=== PATIENT | female | born 1965 | race Caucasian/White ===

== ENCOUNTER 2025-06-10 11:54 | Outpatient (AMB) | payer OTHER, SELFPAY ==
--- NOTE | 2025-06-10 12:10 | MHC.OFFVIS ---
Intake Visit Reasons: FU Allergies No Known Allergies Allergy (Verified 06/10/25 12:20) Medication List - Last Reconciled 06/10/25 by Brii Robin CNP amitriptyline 10 mg PO BEDTIME bupropion HCl SR (Wellbutrin SR) 300 mg PO BID ahmuwthrrn-thqbjyuyrwzms-ygko 50-300-40 mg 1 cap PO Q8H PRN estradiol (Minivelle) 1 patch transdermal 2XW fremanezumab-vfrm (Ajovy) 225 mg subcut .[id number] gabapentin 100 mg PO BEDTIME ondansetron HCl 4 mg PO DAILY progesterone micronized 100 mg PO BEDTIME propranolol ER 160 mg PO DAILY sertraline (Zoloft) 37.5 mg PO DAILY HPI Comments Details: Migraines are better with Ajovy. She still gets some pressure in neck area after injection, but does not last as long. Getting about 3 migraines/month with photophobia, sonophobia, nausea, some with visual aura or feeling of fullness in ears. Migraines not lasting as long, up to 8 hours, and not as severe. Butalbital as needed helps with stress/tension headaches and reduces severity of migraines.?Amitriptyline helps, but unable to take nightly as she is too drowsy and using as needed. Sleep was okay. Stress was about the same. She was still smelling smoke, like cigarette smoke, at times, down to about 2x/week and lasts few minutes. It started around 11/2024 and was happening up to 4x/week, lasting few minutes. Sometimes, she would get headache after, but not always. Sometimes, she already had headache when it happened. She had > 15 migraines in 12/2024.?Depressed and having some body pain that was bit better with gabapentin 100mg prescribed by psychiatrist. She was on a waitlist for new therapist. She started working from home 05/2024, stopped working 11/07/2024. Has not been on Aimovig since 10/2023 which helped. Holidays are difficult times, more depressed and body aches. Migraines most often with aura, will have loss of central vision, rare strobe-light effect, tinnitus/hearing loss before onset of headache. Also gets auras without headaches that do not last too long. Has custody of 10-year-old granddaughter, along with almost 3-year-old and 5-year-old granddaughters. Her daughter gave to son in 05/2024 and is in custody of her brother. Migraines were better till 28 yr old daughter in an AA on 05/26/23. Has family support. Aimovig makes them less intense and shorter. Since February 2022 she has guardianship of two small grandchildren. They go to preschool daycare 8 to 3. works at night. May get auras with and without headache. Migraines with loss of central vision and dots, occasionally a strobe effect as visual aura. Gets a migraine type BETHEA about 1/ 10 days lasting up to 1-2 days. Depression is better and seeing a psychiatrist. No triggers identified. Uses 1 Excedrin or a Fioricet relieves it in an hour. She has a history of migraines since age 11. Migraine frequency increased around puberty. She has no sleep problems and sleeps very soundly for 7-8 hours but if she doesn't put an alarm she can't sleep for 12 hours. She has noted some decline in her memory, loses train of thought. She has been menopausal since age 43 and is on hormone replacement therapy. She also complains of decreased hearing in the right ear without any tinnitus. [facility] Medical History (Updated 06/10/25 @ 12:27 by Brii Robin CNP) Chronic headaches Anxiety and depression Seizure disorder Migraine Surgical History (Updated 06/04/25 @ 17:51 by My Guerra MA) History of tubal ligation Family History (Updated 06/04/25 @ 17:51 by My Guerra MA) Sister Migraine Review of Systems Const Denies chills, Denies daytime sleepiness, Denies difficulty sleeping, Denies fatigue, Denies fever(s), Denies frequent falls, Reports headache(s), Denies increased appetite, Denies poor appetite, Denies snoring, Denies weakness, Denies weight gain and Denies weight loss Eyes Denies loss of vision ENT Denies vertigo, Denies dizziness, Reports headache(s) and Denies neck pain Card Denies chest pain at rest, Denies chest pain with activity, Denies syncope, Denies leg edema, Denies palpitations, Denies dyspnea and Denies dyspnea on exertion Resp Denies cough, Denies dyspnea, Denies dyspnea on exertion and Denies snoring GI Denies abdominal pain, Denies constipation, Denies heartburn, Denies diarrhea and Denies nausea Denies urinary frequency, Denies urinary incontinence and Denies urinary urgency Musc Denies abnormal gait, Denies back pain, Denies myalgias, Denies arthralgias, Denies neck pain, Denies numbness and Denies tingling Neuro Denies abnormal gait, Denies vertigo, Denies dizziness, Denies syncope, Denies frequent falls, Reports headache(s), Denies lack of coordination, Denies loss of vision, Denies memory loss, Denies numbness, Denies Other visual disturbances, Denies restless legs, Denies seizure-like activity, Denies tingling, Denies paresthesias, Denies tremor(s) and Denies weakness Psych Reports anxiety, Reports depression, Denies auditory hallucinations, Denies memory loss and Denies visual hallucinations Endo Denies fatigue and Denies palpitations Physical Exam Const Other: General Appearance:? normal, in no acute distress. Heart:? S1, S2 normal, no murmurs. Lungs:? clear anteriorly and posteriorly. Musculoskeletal:? normal. Extremities:? no edema. Psych:? alert, oriented, cognitive function intact, cooperative with exam. Neuro Other: Abnormal Neurological Findings:?none.? Mental Status: alert and oriented X 3. Normal attention, orientation, memory, and affect. Cranial Nerves: Pupils are equal, round, and reactive to light. External ocular muscles are intact. Visual tejeda are full, no ptosis. Face is symmetrical, no facial weakness or droop. Facial sensations are normal. Tongue protrudes in midline. Palate elevates symmetrically. Shoulder shrugging is normal Motor Examination: Normal muscle tone, bulk and strength. No atrophy or fasciculations. No drift of the extended upper extremities. DTR 2+. Plantars are flexor. Straight Leg Raisin degrees. Sensory Exam: Normal light touch, temperature, pinprick, vibration, and joint-position sensations. Rhomberg sign is absent. Coordination: No ataxia. No titubation. Xxocvp-cq-rhyx, aemi-iycc-orat test, and rapid alternating movements were normal. Gait Exam: Within normal limits. Cerebellar Signs: Bxumnn-gz-jksu and sidy-wg-kxov is normal. No dysdiadochokinesia. Extrapyramidal System: No tremor, rigidity with normal facial expressions. No bradykinesia. No bradyphrenia. Normal arm swing and posture. No propulsion or retropulsion. Speech: Normal. No dysphasia or dysarthria. Results Reviewed Results Reviewed: 05/18/2025 EEG: WNL Assessment & Plan Assessment & Plan (1) Migraine: Code(s): G43.909 - Migraine, unspecified, not intractable, without status migrainosus Category: Medical Qualifiers: Migraine type: unspecified Status migrainosus presence: without status migrainosus Intractability: not intractable Qualified Code(s): G43.909 - Migraine, unspecified, not intractable, without status migrainosus Plan: Continue Ajovy Auto-injector 225mg/1.5mL 1.5mL subcutaneously monthly Continue propranolol ER 160mg 1 capsule daily Continue pbjlxsazyb-YXSQ-ulisluiu 50-300-40mg 1 capsule as needed for headaches every 8 hours #20 for 30 days Continue ondansetron HCL 4mg 1 tablet as needed for nausea/vomiting Continue amitriptyline 10mg 1 tablet at bedtime as needed for headache (2) Seizure disorder: Code(s): G40.909 - Epilepsy, unspecified, not intractable, without status epilepticus Category: Medical Plan: EEG results reviewed. Discussed option for ambulatory EEG, may consider in the future. Plan Tried: Topiramate, Emgality, amitriptyline (drowsy), Sumatriptan, Aimovig (worked, but not covered) Coding Level of Care Code Est Pt Level 4 (94330) Diagnoses Migraine without status migrainosus, not intractable, unspecified migraine type G43.909 Migraine type: unspecified Status migrainosus presence: without status migrainosus Intractability: not intractable Seizure disorder G40.909
== END 2025-06-10 12:32 | disposition home or self-care (01) ==
LOC: HO.HSM 11:54
PROVIDERS: PCP Internal Medicine; Visit Provider Registered Nurse
DX: G43.909 Migraine, unspecified, not intractable, without status migrainosus (principal); G40.909 Epilepsy, unspecified, not intractable, without status epilepticus
CPT/HCPCS: 99214

== ENCOUNTER 2025-09-11 09:40 | Outpatient (AMB) | payer OTHER, SELFPAY ==
--- NOTE | 2025-09-11 09:43 | A.OFFVIS_ITS ---
Intake Visit Reasons: R/s from 08/27/25 Allergies No Known Allergies Allergy (Verified 09/11/25 09:45) Medication List - Last Reconciled 09/11/25 by Brii Robin CNP amitriptyline 10 mg PO BEDTIME bupropion HCl SR (Wellbutrin SR) 300 mg PO BID uosfgqpzwu-avwwekvfvozun-ogpi 50-300-40 mg 1 cap PO Q8H PRN 30 days estradiol (Minivelle) 1 patch transdermal 2XW fremanezumab-vfrm (Ajovy) 225 mg (1.5 mL) subcut QMONTH 30 days gabapentin 100 mg PO BEDTIME ondansetron HCl 4 mg PO DAILY progesterone micronized 100 mg PO BEDTIME propranolol ER 160 mg PO DAILY sertraline (Zoloft) 37.5 mg PO DAILY HPI Comments Details: She missed dose of Ajovy in 07/2025 and migraines increased to 3x/week. Migraines significantly improved after dose on 09/02/2025, down to 1x/week. Gets some pressure to back of head after injection, which seems to be a bit more after missing dose last month. 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 Has 3 month contract and then will decide about permanent position. Butalbital as needed helps with stress/tension headaches and reduces severity of migraines.?Amitriptyline helps, but unable to take nightly as she is too drowsy and using as needed. Still gets episodes of smelling smoke, like cigarette smoke, few times a week lasting few minutes or less. Sleep was up and down. Migraines are better with Ajovy. Migraines about 3x/month with photophobia, sonophobia, nausea, some with visual aura or feeling of fullness in ears. Migraines last 8 hours up to all day, not as severe. She was still smelling smoke, like cigarette smoke, at times, down to about 2x/week and lasts few minutes. It started around 11/2024 and was happening up to 4x/week, lasting few minutes. Sometimes, she would get headache after, but not always. Sometimes, she already had headache when it happened. She had > 15 migraines in 12/2024.?Depressed and having some body pain that was bit better with gabapentin 100mg prescribed by psychiatrist. She was on a waitlist for new therapist. She started working from home 05/2024, stopped working 11/07/2024. Has not been on Aimovig since 10/2023 which helped. Holidays are difficult times, more depressed and body aches. Migraines most often with aura, will have loss of central vision, rare strobe-light effect, tinnitus/hearing loss before onset of headache. Also gets auras without headaches that do not last too long. Has custody of 10-year-old granddaughter, along with almost 3-year-old and 5-year-old granddaughters. Her daughter gave to son in 05/2024 and is in custody of her brother. Migraines were better till 28 yr old daughter in an AA on 05/26/23. Has family support. Aimovig makes them less intense and shorter. Since February 2022 she has guardianship of two small grandchildren. They go to preschool daycare 8 to 3. works at night. May get auras with and without headache. Migraines with loss of central vision and dots, occasionally a strobe effect as visual aura. Gets a migraine type BETHEA about 1/ 10 days lasting up to 1-2 days. Depression is better and seeing a psychiatrist. No triggers identified. Uses 1 Excedrin or a Fioricet relieves it in an hour. She has a history of migraines since age 11. Migraine frequency increased around puberty. She has no sleep problems and sleeps very soundly for 7-8 hours but if she doesn't put an alarm she can't sleep for 12 hours. She has noted some decline in her memory, loses train of thought. She has been menopausal since age 43 and is on hormone replacement therapy. She also complains of decreased hearing in the right ear without any tinnitus. [facility] Medical History (Updated 06/10/25 @ 12:27 by Brii Robin CNP) Chronic headaches Anxiety and depression Seizure disorder Migraine Surgical History (Updated 06/04/25 @ 17:51 by My Guerra MA) History of tubal ligation Family History (Updated 06/04/25 @ 17:51 by My Guerra MA) Sister Migraine Review of Systems Const Denies chills, Denies daytime sleepiness, Denies difficulty sleeping, Denies fatigue, Denies fever(s), Denies frequent falls, Reports headache(s), Denies increased appetite, Denies poor appetite, Denies snoring, Denies weakness, Denies weight gain and Denies weight loss Eyes Denies loss of vision ENT Denies vertigo, Denies dizziness, Reports headache(s) and Denies neck pain Card Denies chest pain at rest, Denies chest pain with activity, Denies syncope, Denies leg edema, Denies palpitations, Denies dyspnea and Denies dyspnea on exertion Resp Denies cough, Denies dyspnea, Denies dyspnea on exertion and Denies snoring GI Denies abdominal pain, Denies constipation, Denies heartburn, Denies diarrhea and Denies nausea Denies urinary frequency, Denies urinary incontinence and Denies urinary urgency Musc Denies abnormal gait, Denies back pain, Denies myalgias, Denies arthralgias, Denies neck pain, Denies numbness and Denies tingling Neuro Denies abnormal gait, Denies vertigo, Denies dizziness, Denies syncope, Denies frequent falls, Reports headache(s), Denies lack of coordination, Denies loss of vision, Denies memory loss, Denies numbness, Denies Other visual disturbances, Denies restless legs, Denies seizure-like activity, Denies tingling, Denies paresthesias, Denies tremor(s) and Denies weakness Psych Reports anxiety, Reports depression, Denies auditory hallucinations, Denies memory loss and Denies visual hallucinations Endo Denies fatigue and Denies palpitations Physical Exam Const Other: General Appearance:? normal, in no acute distress. Heart:? S1, S2 normal, no murmurs. Lungs:? clear anteriorly and posteriorly. Musculoskeletal:? normal. Extremities:? no edema. Psych:? alert, oriented, cognitive function intact, cooperative with exam. Neuro Other: Abnormal Neurological Findings:?none.? Mental Status: alert and oriented X 3. Normal attention, orientation, memory, and affect. Cranial Nerves: Pupils are equal, round, and reactive to light. External ocular muscles are intact. Visual tejeda are full, no ptosis. Face is symmetrical, no facial weakness or droop. Facial sensations are normal. Tongue protrudes in midline. Palate elevates symmetrically. Shoulder shrugging is normal Motor Examination: Normal muscle tone, bulk and strength. No atrophy or fasciculations. No drift of the extended upper extremities. DTR 2+. Plantars are flexor. Sensory Exam: Normal light touch, temperature, pinprick, vibration, and joint- position sensations. Rhomberg sign is absent. Coordination: No ataxia. No titubation. Gait Exam: Within normal limits. Cerebellar Signs: Ewlvrb-ns-uont and ljyi-zh-ztwg is normal. No dysdiad ochokinesia. Extrapyramidal System: No tremor, rigidity with normal facial expressions. No bradykinesia. No bradyphrenia. Normal arm swing and posture. No propulsion or retropulsion. Speech: Normal. No dysphasia or dysarthria. Results Reviewed Results Reviewed: 05/18/2025 EEG: WN Assessment & Plan Assessment & Plan (1) Migraine: Code(s): G43.909 - Migraine, unspecified, not intractable, without status migrainosus Category: Medical Qualifiers: Intractability: not intractable Migraine type: unspecified Status migrainosus presence: without status migrainosus Qualified Code(s): G43.909 - Migraine, unspecified, not intractable, without status migrainosus Plan: Continue Ajovy Auto-injector 225mg/1.5mL 1.5mL subcutaneously monthly. Continue propranolol ER 160mg 1 capsule daily. Continue oysggxgmof-YFLS-vozaqzvi 50-300-40mg 1 capsule as needed for headaches every 8 hours #20 for 30 days. Continue ondansetron HCL 4mg 1 tablet as needed for nausea/vomiting. Continue amitriptyline 10mg 1 tablet at bedtime as needed for headache. (2) Seizure disorder: Code(s): G40.909 - Epilepsy, unspecified, not intractable, without status epilepticus Category: Medical Plan: 48hr EEG ordered. Brain MRI ordered. Plan Tried: Topiramate, Emgality, amitriptyline (drowsy), Sumatriptan, Aimovig (worked, but not covered) Orders: Orders MR head/brain wo con Today G40.909 - Epilepsy, unspecified, not intractable, without status epilepticus, G43.909 - Migraine, unspecified, not intractable, without status migrainosus EEG 48hr Ambulatory Today G40.909 - Epilepsy, unspecified, not intractable, without status epilepticus Medications: Changed From fremanezumab-vfrm (Ajovy) 225 mg (1.5 mL) subcut QMONTH 30 days 1 ea 5RF To fremanezumab-vfrm (Ajovy) 225 mg (1.5 mL) subcut QMONTH 3 ea 1RF 90 days Coding Level of Care Code Est Pt Level 4 (38488) Diagnoses Migraine without status migrainosus, not intractable, unspecified migraine type G43.909 Intractability: not intractable Migraine type: unspecified Status migrainosus presence: without status migrainosus Seizure disorder G40.909
--- OUTSIDE RECORDS SUMMARY | 2025-09-11 11:06 | XMS_ITS | Clinical Summary ---
Author Organization [facility] Address [address] [place] [address] Phone Care Team Providers Care Project Geophysicist Name Role Phone Anel Guzmán OFFICE INSPECTOR Unavailable [phone] Silvana Calhoun PA-C Primary Care Provider Allergies No known active allergies Medications glucosamine sulfate (GLUCOSAMINE ORAL) TWO DAILY Orally Active propranolol (INDERAL LA) 160 mg SR capsule 1 tablet Orally Once a day Active multivitamin per tablet Orally Once daily Active cetirizine (ZYRTEC) 10 MG tablet Take 10 mg by mouth daily. Active buPROPion (WELLBUTRIN XL) 300 MG ER 24 hr tablet Take 600 mg by mouth daily. 0 Active estradioL (VIVELLE-DOT) 0.05 mg/24 hr APPLY 1 PATCH TWICE WEEKLY 0 Active LORazepam (ATIVAN) 0.5 MG tablet Take 0.5 mg by mouth daily as needed. 1 Active RESTASIS 0.05 % suspension INSTILL 1 DROP INTO AFFECTED EYE EVERY 12 HOURS 2 Active butalbital-acetam inophen-caffeine (FIORICET) 50-300-40 mg per capsule TAKE 1 CAPSULE BY MOUTH EVERY 4 TO 6 HOURS NEEDED 7 2 Active omeprazole (PRILOSEC) 20 MG capsule Take 1 capsule by mouth daily. 9 Active sertraline (ZOLOFT) 25 MG tablet Take 1.5 tablets (37.5 mg total) by mouth daily. 3 Active cholecalciferol, vitamin D3, (VITAMIN D3 ORAL) Take 1,000 Units by mouth daily. Active gabapentin (NEURONTIN) 100 MG capsule Take 100 mg by mouth 3 (three) times a day as needed. 5 Active fremanezumab-vfrm (AJOVY) 225 mg/1.5 mL subcutaneous auto-injector Inject 225 mg under the skin every 30 (thirty) days. Active mupirocin (BACTROBAN) 2 % ointment by Nasal route 2 (two) times a day for 5 days. 22 g 5 08/31/20 25 Active Problems Problem Noted Date Diagnosed Date Class 1 obesity due to exces s calories without serious comorbidity with body mass index (BMI) of 32.0 to 32.9 in adult 06/26/2025 Assessment & Plan (06/26/2025 10:09 AM EDT): She notes significant weight gain in the setting of grief, having gained 20 pounds in the past year. She notes a poor appetite and struggles to eat throughout the day. She is unable to exercise but does take her dog for a walk in the morning which she finds beneficial. We discussed lifestyle modifications for weight loss including a well-balanced diet and routine physical activity. I advised the patient about getting enough protein in her diet which she is trying to do as well as making sure that she is eating enough calories. Discussed avoiding sweets and fast food and eating out as best she can. We also discussed weight loss medications. At this time, I do not believe that the medications are appropriate for her. She would not be a candidate for phentermine given her significant mental health concerns and grief and I do not believe that she would be a candidate for topiramate. Discussed GLP-1 medications and that given her poor appetite and decreased activity levels, I believe that GLP-1 medication may cause more harm than good. Discussed that if she continues to gain weight then we can reassess this in the future. Hormone replacement therapy (HRT) 06/26/2025 Assessment & Plan (06/26/2025 10:10 AM EDT): Following with [facility] gynecology currently on hormone replacement therapy. Per the patient, Ernestina Howard with her law enforcement officer is trying to discontinue her hormone replacement therapy but the patient is not willing to do so. Routine general medical exam ination at a [facility] care facility 06/26/2025 Assessment & Plan (06/26/2025 10:10 AM EDT): Will obtain routine lab work including CMP, lipid panel, and thyroid panel. Up-to-date with mammogram and Pap smear. Up-to-date with colonoscopy. Up-to-date with routine dental and eye screenings. Vitamin D deficiency, unspecified 06/26/2025 Assessment & Plan (06/26/2025 10:10 AM EDT): Recently initiated vitamin D3 1000 units daily as she felt like it could help with her fatigue. Will assess her overall vitamin D levels. Grieving 10/31/2023 Assessment & Plan (06/26/2025 10:09 AM EDT): She has significant grief after losing her daughter to a car accident 2 years ago. She is following with psychiatry who is prescribing sertraline 37.5 mg daily, lorazepam 0.5 mg daily as needed, gabapentin 100 mg 3 times daily as needed, and bupropion 600 mg daily. She also follows with therapy. She does have a lot of grief related symptoms including chest pressure when she thinks about her daughter. We discussed in depth the chest pressure, she does not have any pressure or pain with exercise or movements. Discussed how grief and stress can affect the heart. Discussed potentially getting an echo and a stress test, we will hold off at this time to see if her symptoms improve over time but if they continue to persist I would like to move forward with these tests. Patient notes understanding. Advised the patient that if she needs anything from our office she is more than welcome to reach out. Migraine with aura and witho ut status migrainosus, not intractable 10/27/2022 Assessment & Plan (06/26/2025 10:10 AM EDT): History of migraines following with [facility], well-managed on propranolol 160 mg daily and Ajovy monthly. She also gets tension headaches for which she uses Excedrin as first-line and then Fioricet afterwards with positive improvement of symptoms. Gastroesophageal reflux disease without esophagi tis 10/27/2022 Assessment & Plan (06/26/2025 10:10 AM EDT): Well-managed on omeprazole 20 mg daily. Anxiety 08/29/2018 Chronic headaches 08/29/2018 Depression 08/29/2018 Arthralgia of hip 08/29/2018 Encounters Date Type Department Care Team Description 07/14/2025 10:17 AM EDT - 07/14/2025 11:59 PM EDT Hospital Encounter [facility] [address] [place] [address] Silvana Calhoun PA-C Discharge Disposition: Home or Self Care 06/26/2025 9:00 AM EDT Office Visit [facility] Internal Medicine [address] [place] [address] Silvana Calhoun PA-C Routine general medical examination at a health care facility (Primary Dx); Vitamin D deficiency, unspecified; Grieving; Class 1 obesity due to excess calories without serious comorbidity with body mass index (BMI) of 32.0 to 32.9 in adult; Migraine with aura and without status migrainosus, not intractable; Hormone replacement therapy (HRT); Gastroesophageal reflux disease without esophagitis 06/26/2025 Orders Only [facility] [address] [place] [address] Silvana Calhoun PA-C from Last 3 Months Immunizations Immunization Administration Dates Next Due COVID-19 (Pre-09/17) Pfizer Vaccine, mRNA, PF 03/27/2021,03/06/2021 INFLUENZA, SPLIT VIRUS, TRIV ALENT W/ PRESERVATIVE IM 09/08/2014 Influenza Quadrivalent Preservative Free IM 04/2023,09/28/2022,09/15/2020 Tdap 09/08/2014 Zoster recombinant 09/28/2022,06/14/2022 Family History Medical History Relation Comments Anxiety disorder Daughter 1 Depression Daughter 1 Drug abuse Daughter 1 opioids No Known Problems Daughter 2 Depression Father Hypertension Father Restless legs syndrome Father No Known Problems Mother Hypertension Sibling Depression Sister Hypertension Sister Restless legs syndrome Sister Relation Status Comments Daughter 1 Alive Daughter 2 Father Mother Sibling Sister Social History Tobacco Use Types Packs/Day Years Used Date Smoking Tobacco: Former Cigarettes 1 1983 Smokeless Tobacco: Never Tobacco Cessation:Counseling Given: Not Answered Comments:In high school, unsure of qty Alcohol Use Standard Drinks/Week Comments Not Currently 0 (1 standard drink = 0.6 oz pur e alcohol) Child or Family Care Answer Date Record ed Do you have problems with on e of the following making it difficult for you to work, study, or receive health care? No 06/25/2025 Education Answer Date Recorded Are you interested in help w ith more adult education (for example, completing high school, GED, job training, learning the [place] language, technical skills, or developing parenting skills)? No 06/25/2025 Are you concerned about learning? Not on file 06/25/2025 No 06/25/2025 Yes 06/25/2025 Food Answer Date Recorded Within the past 6 months we worried whether our food would run out before we got money to buy more. Never True 06/25/2025 Within the past 6 months the food we bought just didn't last and we didn't have enough money to get more. Never True Residential Stability Answer Date Recor ded What is your housing situation today? I have andre sing 06/25/2025 How many times have you move d in the past 12 months? Zero (I did not move) 06/25/2025 Paying for Meds Answer Date Recorded Do you have trouble paying for medicines? No 06/25/2025 Paying Utility Bills Answer Date Record ed Do you have trouble paying your heating or elect ricity bill? No 06/25/2025 Transportation Answer Date Recorded Has the lack of transportati on kept you from medical appointments or from getting medications? No 06/25/2025 Unemployment Answer Date Recorded Are you currently unemployed or working on a part-time or temporary basis, and looking for work? No 10/26/2022 Digital Access Answer Date Recorded No 06/25/2025 Yes 06/25/2025 Do you have reliable internet access at home? Ye s 06/25/2025 Do you have a device (e.g., phone, tablet, computer) with a working camera? Yes 06/25/2025 Intimate Partner Violence Answer Date R ecorded Denied Basic Needs Not on file 06/25/2025 In the past 12 months have y ou been in a relationship with a person who hurts, threatens, or tries to control you? No 06/25/2025 Worried food would run out Not on file 06/25 In the past 12 months have y ou been in a relationship with a person who hurts, threatens, or tries to control you? No 06/25/2025 Comments No Sex and Gender Information Value Date Recorded Sex Assigned at Not on file Legal Sex Female 6:56 PM EST Gender Identity Not on file Sexual Orientation Not on file Last Filed Vital Signs Vital Sign Reading Time Taken Comments Blood Pressure 108/66 06/26/2025 9:09 AM EDT Pulse 70 06/26/2025 9:09 AM EDT Temperature 36.6 C (97.9 F) 05/12/2022 3:17 PM EDT Respiratory Rate 16 06/26/2025 9:09 AM EDT Oxygen Saturation 99% 06/26/2025 9:09 AM EDT Inhaled Oxygen Concentration - - Weight 73.4 kg (161 lb 12.8 oz) 06/26/2025 9:09 AM EDT Height 149.2 cm (4' 10.75 ) 06/26/2025 9:09 AM E DT Body Mass Index 32.96 06/26/2025 9:09 AM EDT Plan of Treatment Upcoming Encounters Date Type Department Care Team (Late st Contact Info) Description 12/29/2025 8:40 AM EST Office Visit [facility] [address] [place] [address] Silvana Calhoun PA-C [address] [place] [address] Health Maintenance Due Date Last Done Comments COLOGUARD 2011 FIT TEST 2011 FOBT 2011 SIGMOIDOSCOPY 2011 VIRTUAL COLONOSCOPY 2011 PNEUMOCOCCAL VACCINES (50+ years) (1 of 1 - PCV) 01/29/2016 Adult Td,Tdap Booster 09/08/2024 09/08/2014 INFLUENZA VACCINE (#1) 2025 , 09/28/2022, 09/15/2020, Additional history exists REPEAT PHQ 07/26/2025 06/25/2025, 06/25/2025 COVID-19 VACCINE ( season) 2025 12/02/2021, 03/27/2021, 03/06/2021 DEPRESSION SCREENING 06/25/2026 06/25/2025, 06/25/20 SMOKING Hx and SMOKELESS TOBACCO SCREENING 06/26/2026 06/26/2025 COLONOSCOPY 01/15/2027 01/15/2017 COLORECTAL CANCER SCREENING 01/15/2027 MAMMOGRAM 06/18/2027 06/18/2025, 06/0 06/2023, 10/27/2022, Additional history exists SCREENING FOR DIABETES 07/14/2028 07/14/2025 PAP SMEAR 06/16/2030 06/16/2025, 01/0 04/2022, 08/20/2018 LIPID PANEL 07/14/2030 07/14/2025, 120 04/2023, 06/07/2022, Additional history exists RSV VACCINE (1 - 1-dose 75+ series) 2041 HEPATITIS C SCREENING Completed 06/07/2022 HIV ONE-TIME SCREENING (18-65 YEARS) Completed 06/07/2022 ZOSTER VACCINES Completed 09/28/2022, 06/14/2022 HEPATITIS A VACCINES Aged Out No long er eligible based on patient's age to complete this topic HIB VACCINES Aged Out No longer eligi ble based on patient's age to complete this topic MENINGOCOCCAL VACCINES (ACWY) Aged Out No longer eligible based on patient's age to complete this topic MENINGOCOCCAL VACCINES (B) Aged Out N o longer eligible based on patient's age to complete this topic Medical Devices Not on file Procedures Procedure Name Priority Date/Time Associated Diagnosis Comments TSH WITH REFLEX Routine 07/14/2025 10:17 AM EDT Routine general medical examination at a health care facility LIPID PANEL Routine 07/14/2025 10:17 AM EDT Routine general medical examination at a health care facility COMPREHENSIVE METABOLIC PANEL Routine 07/14/2025 10:17 AM EDT Routine general medical examination at a health care facility 25-OH VITAMIN D Routine 07/14/2025 10:17 AM EDT Vitamin D deficiency, unspecified HM MAMMOGRAPHY Routine 06/18/2025 8:56 AM EDT PAP TEST Routine 06/16/2025 8:59 AM EDT HEPATITIS C ANTIBODY, QUALITATIVE Routine 06/07/2022 9:46 AM EDT Need for hepatitis C screening test from Last 3 Months or Most Recently Relevant to Health Maintenance Results * Comprehensive metabolic panel (07/14/2025 10:17 AM EDT) SODIUM 137 133 - 146 mmol/L [facility] POTASSIUM 4.0 3.3 - 5.1 mmol/L [facility] CHLORIDE 102 96 - 108 mmol/L [facility] CO2 25 21 - 35 mmol/L [facility] BUN 6 6 - 19 mg/dL [facility] CREATININE 0.70 0.5 - 1.5 mg/dL [facility] GLUCOSE 87 70 - 99 mg/dL [facility] ALBUMIN 4.1 3.9 - 4.8 g/dL [facility] TOTAL PROTEIN 6.9 6.5 - 8.0 g/dL [facility] CALCIUM 8.7 8.4 - 10.3 mg/dL [facility] ALKALINE PHOSPHATASE 51 39 - 117 U/L [facility] TOTAL BILIRUBIN 0.3 0.0 - 1.2 mg/dL [facility] AST 26 0 - 37 U/L [facility] ALT 11 0 - 40 U/L [facility] GLOBULIN 2.8 1 - 4.8 g/dL [facility] EGFR 100 >59 mL/min/1.7 3m2 [facility] Comment:Estimated glomerular filtration rate calculated using the CKD-EPI refit equation. ANION GAP 14 10 - 20 mmol/L [facility] Blood 07/14/2025 10:1 7 AM EDT 07/14/2025 10:20 AM EDT [facility] PA-C LAB BLOOD ORDERABLES Final R esult Performing Organization Address City/[facility]/ZIP Co de Phone Number [address] [address] * TSH with reflex (07/14/2025 10:17 AM EDT) TSH 2.28 0.27 - 4.20 uIU/mL [facility] Blood 07/14/2025 10:1 7 AM EDT 07/14/2025 10:20 AM EDT [facility] PA-C LAB BLOOD ORDERABLES Final R esult Performing Organization Address [facility]/ZIP Co de Phone Number [address] [address] * 25-OH vitamin D (07/14/2025 10:17 AM EDT) 25 OH VIT D (TOTAL) 54 30 - 60 ng/mL [facility] Blood 07/14/2025 10:1 7 AM EDT 07/14/2025 10:20 AM EDT [facility] PA-C LAB BLOOD ORDERABLES Final R esult Performing Organization Address City/[facility]/ZIP Co de Phone Number [address] [address] * (ABNORMAL) Lipid panel (07/14/2025 10:17 AM EDT) HDL 46 mg/dL [facility] Comment: Interpretation <40 mg/dL: Low HDL cholesterol (major risk factor for CHD) Greater than or equal to 60 mg/dL: High HDL cholesterol ( negative risk factor for CHD) HDL - cholesterol is affected by a number of factors, e.g. smoking, excerise, hormones, sex and age. CHOLESTEROL 212 0 - 240 mg/dL [facility] TRIGLYCERIDES 96 30 - 160 mg/dL [facility] LDL 147(H) 50 - 129 mg/dL [facility] Comment: LDL levels in terms of risk for coronary heart disease: <100 mg/dL: Optimal 100-129 mg/dL: Near or above optimal 130-159 mg/dL: Borderline high 160-189 mg/dL: High >190 mg/dL: Very High CARDIAC RISK RATIO 4.6(H) 3.3 - 4.4 C [facility] Blood 07/14/2025 10:1 7 AM EDT 07/14/2025 10:20 AM EDT Silvana Calhoun PA-C LAB BLOOD ORDERABLES Final R esult [address] [id number] * MAMMOGRAPHY FOR RESULT ENTRY ONLY (06/18/2025 8:56 AM EDT) Impressions Johana Patton CMA - 06/18/2025 8:56 AM EDT BIRADS 1 Historical Provider HEALTH MAINTENANCE Edited Result - Final * Pap Test (06/16/2025 8:59 AM EDT) Result - External See Scanned Results Impressions Johana Patton CMA - 06/16/2025 8:59 AM EDT NILM, HPV neg Historical Provider CYTOLOGY ORDERABLES Edite d Result - Final * Hepatitis C antibody, qualitative (06/07/2022 9:46 AM EDT) HCV NON-REACTIV E NON-REACTI VE [facility] Blood 06/07/2022 9:46 AM EDT 06/07/2022 9:50 AM EDT us Arleth Jenkins NP LAB BLOOD ORDERABLES Final Resu lt [facility] [address] [place] [address] from Last 3 Months or Most Recently Relevant to Health Maintenance [facility] [employer] [facility] Care Teams Project Geophysicist Relationship Specialty Start Date End Date Silvana Calhoun PA-C [address] [place] [phone] [email or web address] PCP - General Physician Foot Piece Assembler 06/26/25 Anel Guzmán NP [address] [place] [id number] Gynecology 05/12/22 Additional Source Comments The information contained in this document represents components of the legal health record. It is not the complete legal health record.[facility]
== END 2025-09-11 10:03 | disposition home or self-care (01) ==
LOC: HO.HSM 09:41
PROVIDERS: PCP Internal Medicine; Visit Provider Registered Nurse
DX: G43.909 Migraine, unspecified, not intractable, without status migrainosus (principal); G40.909 Epilepsy, unspecified, not intractable, without status epilepticus
CPT/HCPCS: 99214

== ENCOUNTER 2025-11-13 19:37 | Outpatient (REF) | payer OTHER, SELFPAY ==
--- OUTSIDE RECORDS SUMMARY | 2025-11-10 08:40 | XMS_ITS | Encounter Summary ---
Author Organization [facility] Address [address] [place] [address] Phone Care Team Providers Care [employer] Consultant Name Role Phone ArielleLindaAnel Trevon PH[employer]GRAPH[employer] MODEL Unavailable [phone] Silvana Calhoun PA-C Primary Care Provider [phone] Reason for Visit * Reason Comments Follow Up Visit Cough and congestion Encounter Details Date Type Department Care Team (Late st Contact Info) Description 11/10/2025 8:40 AM EST Office Visit [facility] [address] [place] [address] Silvana Calhoun PA-C [address] [place] [address] [email or web address] Pneumonia of right middle lobe due to infectious organism (Primary Dx); Dry mouth and eyes; Functional diarrhea Social History Tobacco Use Types Packs/Day Years Used Date Smoking Tobacco: Former Cigarettes 1983 Smokeless Tobacco: Never Comments:In high school, uns ure of qty Alcohol Use Standard Drinks/Week Comments [...] high school, GED, job training, learning the [place] language, technical skills, or developing parenting skills)? [...] on file Sexual Orientation Not on file documented as of this encounter Last Filed Vital Signs Vital Sign Reading Time Taken Comments Blood Pressure 122/84 11/10/2025 8:36 AM EST Pulse 82 11/10/2025 8:36 AM EST Temperature 35.6 C (96 F) 11/10/2025 8:36 AM EST Respiratory Rate 13 11/10/2025 8:36 AM EST Oxygen Saturation 98% 11/10/2025 8:36 AM EST Inhaled Oxygen Concentration - - Weight 68.8 kg (151 lb 9.6 oz) 11/10/2025 8:36 A M EST Height 149.2 cm (4' 10.74 ) 11/10/2025 8:[address] Body Mass Index 30.89 11/10/2025 8:36 AM EST documented in this encounter Progress Notes * Silvana Calhoun PA-C - 11/10/2025 8:40 AM EST Subjective Sarah Mccord is a 60 y.o. female. History of Present Illness The patient is a 60-year-old female who presents for a follow-up visit. She was last seen in the office on 10/09/2025 for an acute URI with recommendations to follow-up ifsymptoms continue to persist after 10/13/2025. She noted some resolution of symptoms but started feeling worse after . She reached out to the office and a chest x-ray was ordered which noted right middle lobe pneumonia. She was started on amoxicillin 1000 mg 3 times daily x 5 days and aZ-David. She completed a course of azithromycin and amoxicillin, with the last doses taken on Sunday nightand yesterday, respectively. She reports a loss of taste and smell since , which has not yet returned. She has lost weight due to her inability to taste food. Despite feeling unwell, she believes her condition is improving. Her cough has lessened, but she continues to experience fatigueand mild congestion. She was surprised by her pneumonia diagnosis as she did not feel it in her lungs. She reports muscle aches and chills but has not monitored her temperature. She has been diligentabout taking Tylenol, which she takes when coughing wakes her up at night. She slept through the night last night but woke up in pain, which subsided after taking Tylenol. She reports severe dry mouth, which she initially attributed to grief over her daughter's from May 2023. She suspected it might be a side effect of Zoloft, so she reduced her dosage to one pill a day, but there was no improvement. She also reports dry sinuses and chronic dry eyes since her 20s. She has chronic joint pain and takes glucosamine for it. However, since falling ill, she has been experiencing widespread body aches. She occasionally experiences random pain in different parts of her body. She experienced severe diarrhea as a side effect of the antibiotics, for which she took Culturelle,initially one pill a day, then increased to two pills a day, which slowed down the diarrhea but didnot stop it. She cannot take Imodium as it induces vomiting. She has experienced vomiting due to severe coughing, but this has improved. She reports a burning sensation when breathing in, which triggers her cough. She has been taking Tessalon Perles, which sheinitially found ineffective, but taking two at a time provided some relief. She has also been taking Robitussin Honey frequently but stopped when she realized it contained Mucinex. Current Outpatient Medications Ordered in [facility] Medication Sig buPROPion (WELLBUTRIN XL) 300 MG ER 24 hr tablet Take 600 mg by mouth daily. crnemjgcup-eouepthhegvhw-pyexkmba (FIORICET) 50-300-40 mg per capsule TAKE 1 CAPSULE BY MOUTH EVERY4 TO 6 HOURS NEEDED 7 cholecalciferol, vitamin D3, (VITAMIN D3 ORAL) Take 1,000 Units by mouth daily. estradioL (VIVELLE-DOT) 0.05 mg/24 hr APPLY 1 PATCH TWICE WEEKLY fremanezumab-vfrm (AJOVY) 225 mg/1.5 mL subcutaneous auto-injector Inject 225 mg under the skin every 30 (thirty) days. gabapentin (NEURONTIN) 100 MG capsule Take 100 mg by mouth 3 (three) times a day as needed. glucosamine sulfate (GLUCOSAMINE ORAL) TWO DAILY Orally LORazepam (ATIVAN) 0.5 MG tablet Take 0.5 mg by mouth daily as needed. multivitamin per tablet Orally Once daily omeprazole (PRILOSEC) 20 MG capsule Take 1 capsule by mouth daily. propranolol (INDERAL LA) 160 mg SR capsule 1 tablet Orally Once a day RESTASIS 0.05 % suspension INSTILL 1 DROP INTO AFFECTED EYE EVERY 12 HOURS sertraline (ZOLOFT) 25 MG tablet Take 1.5 tablets (37.5 mg total) by mouth daily. (Patient taking differently: Take 25 mg by mouth daily.) Review of Systems All other systems reviewed and are negative. Objective Physical Exam Blood pressure 122/84, pulse 82, temperature 35.6 ??C (96 ??F), temperature source Temporal, resp. rate 13, height 149.2 cm (4' 10.74 ), weight 68.8 kg (151 lb 9.6 oz), SpO2 98%, not currently . Gen: Alert, pleasant and cooperative, no acute distress. HEENT: Atraumatic, normocephalic. PERRL. No gross hearing deficits noted. Ear canals clear bilaterally without cerumen impaction. Tympanic membranes visualized bilaterally with cone of light present,no erythema, bulging, perforation. Mucous membranes moist. Neck supple and symmetrical. No palpable cervical adenopathy. Skin: [place], warm, dry. Chest: No focal tenderness to palpitation. Lungs clear to auscultation bilaterally without accessory breath sounds or increased respiratory effort. CV: RRR, no murmurs, rubs, gallops appreciated. No LE edema bilaterally. Ext: No gross deformities. Moving all extremities comfortably. Neuro: CN II-XII grossly intact. Alert and oriented x 3. Normal speech and language. Memory intact.Mood appropriate. Results Impression chest x-ray 11/03/2025 Right middle lobe pneumonia. No pleural fluid. Consider radiographic follow-up to document resolution. Assessment & Plan 1. Pneumonia: Patient had a URI in mid September which transition to bacterial pneumonia of the right middle lobe.She was on amoxicillin and a Z-David x 5 days and has had some improvement of symptoms, although she has lingering fatigue and a cough as well as loss of taste and smell. Will obtain a repeat chest x-ray in 3 weeks to reassess resolution of pneumonia. Given that her lungs are clear to auscultation onexam today, additional antibiotics not indicated at this time. Advise continuing symptomatic treatment and that she should inform the clinic if she starts to feel worse again. 2. Dry mouth and eyes: She reports a history of chronic dry eyes in her 20s and for the past 2 years she has experienced dry mouth which she originally thought was due to grief. She also thought it could have been due to her sertraline so she self decreased the dosage to 25 mg daily but has not noticed any improvement. She also reports chronic joint and body pain. Given the symptoms, will obtain an SSA Ro antibody as well as an anti-Ro antibody to assess for underlying Sjogren's. 3. Diarrhea: She has been experiencing some mild diarrhea from the antibiotics due to her pneumonia. Advised to focus on probiotics and increasing fiber intake as well as staying hydrated. Unable to take Imodium due to intolerance. I obtained verbal consent from the patient or their proxy to record this visit for purposes of producing a draft of the encounter documentation. Silvana aClhoun PA-C documented in this encounter Miscellaneous Notes * Assessment & Plan Note - Silvana Calhoun PA-C - 11/10/2025 9:50 AM EST Associated Problem(s): Diarrhea She has been experiencing some mild diarrhea from the antibiotics due to her pneumonia. Advised to focus on probiotics and increasing fiber intake as well as staying hydrated. Unable to take Imodium due to intolerance. * Assessment & Plan Note - Silvana Calhoun PA-C - 11/10/2025 9:50 AM EST Associated Problem(s): Dry mouth and eyes She reports a history of chronic dry eyes in her 20s and for the past 2 years she has experienced dry mouth which she originally thought was due to grief. She also thought it could have been due to her sertraline so she self decreased the dosage to 25 mg daily but has not noticed any improvement. She also reports chronic joint and body pain. Given the symptoms, will obtain an SSA Ro antibody as well as an anti-Ro antibody to assess for underlying Sjogren's. * Assessment & Plan Note - Silvana Calhoun PA-C - 11/10/2025 9:50 AM EST Associated Problem(s): Pneumonia of right middle lobe due to infectious organism Patient had a URI in mid September which transition to bacterial pneumonia of the right middle lobe.She was on amoxicillin and a Z-David x 5 days and has had some improvement of symptoms, although she has lingering fatigue and a cough as well as loss of taste and smell. Will obtain a repeat chest x-ray in 3 weeks to reassess resolution of pneumonia. Given that her lungs are clear to auscultation onexam today, additional antibiotics not indicated at this time. Advise continuing symptomatic treatment and that she should inform the clinic if she starts to feel worse again. documented in this encounter Plan of Treatment Upcoming Encounters Date Type Department Care Team (Late st Contact Info) Description 12/29/2025 8:40 AM EST Office Visit [facility] [address] [place] [address] Silvana Calhoun PA-C [address] [place] [address] [email or web address] documented as of this encounter Results * SS-A/SS-B Antibodies (11/10/2025 9:17 AM EST) Anti-Ro Antibodies 1.8 <19.9 U 11/11/2025 3:18 PM EST [facility] Anti-La Antibody 1.2 <19.9 U 11/11/2025 3:18 PM EST [facility] SSA Negative 11/11/2025 3:18 PM EST [facility] SSB Negative 11/11/2025 3:18 PM EST [facility] Blood (Blood) Venipuncture / Unknown 11/10/2025 9:17 AM EST 11/10/2025 9:17 AM EST Silvana Calhoun PA-C LAB BLOOD BKR ORDERABLES Fin al Result [address] [id number] documented in this encounter Visit Diagnoses Diagnosis Pneumonia of right middle lobe due to infectious organism- Primary Dry mouth and eyes Functional diarrhea documented in this encounter Additional Health Concerns Assessment Noted Time PHQ-9 Depression Total Score: 14 025 2:30 PM EST PHQ-2 Depression Total Score: 4 10/09/20 25 2:30 PM EST documented as of this encounter Care Teams [employer] Consultant Relationship Specialty Start Date End Date Silvana Calhoun PA-C [address] [place] [address] [email or web address] PCP - General Physician Fancy Stitcher 06/26/25 Anel Guzmán NP [address] [place] [id number] Gynecology 05/12/22 documented as of this encounter Additional Source Comments The information contained in this document represents components of the legal health record. It is not the complete legal health record.[facility]
--- NOTE | ~2025-11-13 | MR_ITS ---
EXAMINATION: MR BRAIN WITHOUT CONTRAST CLINICAL INFORMATION: Migraine. COMPARISON: None available. TECHNIQUE: MRI of the brain was obtained using routine sequences without contrast. FINDINGS: There is no restricted diffusion seen to suspect any acute ischemic event. No restricted diffusion seen to suspect any acute or chronic hemorrhagic products. There are scattered T2 FLAIR foci in subcortical, deep white matter and periventricular white matter of both frontal and left parietal lobe without mass effect or edema. There is no midline shift. The lateral ventricles are symmetrical but enlarged. Even though these findings are nonspecific can be seen with demyelination. Normal flow-void signal seen in major cerebral vasculature. There is diffuse mucoperiosteal thickening involving bilateral maxillary, ethmoid, sphenoid and frontal sinuses. MR/MR head/brain wo con IMPRESSION: Chronic pansinusitis. Scattered T2 signal changes in subcortical, deep and periventricular white matter of both frontal parietal lobes. These are nonspecific. No signs of mass effect, acute ischemia or bleed seen. Electronically signed by: Jorge Mosley MD 11/16/2025 07:15 AM GILMAR
--- OUTSIDE RECORDS SUMMARY | 2025-11-13 19:46 | XMS_ITS | Clinical Summary ---
Author Organization [facility] Address [address] [place] [address] Phone Care Team Providers Care Glassblower Name Role Phone Anel Guzmán FILLER SHREDDER MACHINE Unavailable Silvana Calhoun PA-C Primary Care Provider Allergies No known active allergies Medications glucosamine sulfate (GLUCOSAMINE ORAL) TWO DAILY Orally Active propranolol (INDERAL LA) 160 mg SR capsule 1 tablet Orally Once a day Active multivitamin per tablet Orally Once daily Active buPROPion (WELLBUTRIN XL) 300 MG ER 24 hr tablet Take 600 mg by mouth daily. 0 Active estradioL (VIVELLE-DOT) 0.05 mg/24 hr APPLY 1 PATCH TWICE WEEKLY 0 Active LORazepam (ATIVAN) 0.5 MG tablet Take 0.5 mg by mouth daily as needed. 1 Active RESTASIS 0.05 % suspension INSTILL 1 DROP INTO AFFECTED EYE EVERY 12 HOURS 2 Active butalbital-aceta minophen-caffein e (FIORICET) 50-300-40 mg per capsule TAKE 1 CAPSULE BY MOUTH EVERY 4 TO 6 HOURS NEEDED 7 2 Active omeprazole (PRILOSEC) 20 MG capsule Take 1 capsule by mouth daily. 9 Active sertraline (ZOLOFT) 25 MG tablet Take 1.5 tablets (37.5 mg total) by mouth daily. 12/06/202 3 Active cholecalciferol, vitamin D3, (VITAMIN D3 ORAL) Take 1,000 Units by mouth daily. Active gabapentin (NEURONTIN) 100 MG capsule Take 100 mg by mouth 3 (three) times a day as needed. Active fremanezumab-vfr m (AJOVY) 225 mg/1.5 mL subcutaneous auto-injector Inject 225 mg under the skin every 30 (thirty) days. Active cetirizine (ZYRTEC) 10 MG tablet Take 10 mg by mouth daily. 11/10/20 Discontinu ed(No longer taking) benzonatate (TESSALON) 100 MG capsule Take 1 capsule (100 mg total) by mouth 3 (three) times a day as needed for cough. 21 capsule 5 11/10/20 Discontinu ed(No longer taking) amoxicillin (AMOXIL) 500 MG capsuleIndicatio ns:Pneumonia of right middle lobe due to infectious organism Take 2 capsules (1,000 mg total) by mouth 3 (three) times a day for 5 days. 30 capsule 5 11/10/20 Discontinu ed(No longer taking) azithromycin (ZITHROMAX Z-FELICITAS) 250 MG tabletIndication s:Pneumonia of right middle lobe due to infectious organism Take 2 tablets on day 1, and take 1 tablet on days 2 through 5 for a total of 5 days. 6 tablet 5 11/10/20 Discontinu ed(No longer taking) Active Problems Problem Noted Date Diagnosed Date Pneumonia of right middle lobe due to infectious organism 11/10/2025 Assessment & Plan (11/10/2025 9:50 AM EST): Patient had a URI in mid September which transition to bacterial pneumonia of the right middle lobe. She was on amoxicillin and a Z-Felicitas x 5 days and has had some improvement of symptoms, although she has lingering fatigue and a cough as well as loss of taste and smell. Will obtain a repeat chest x-ray in 3 weeks to reassess resolution of pneumonia. Given that her lungs are clear to auscultation on exam today, additional antibiotics not indicated at this time. Advise continuing symptomatic treatment and that she should inform the clinic if she starts to feel worse again. Dry mouth and eyes 11/10/2025 Assessment & Plan (11/10/2025 9:50 AM EST): She reports a history of chronic dry [...] anti-Ro antibody to assess for underlying Sjogren's. Diarrhea 11/10/2025 Assessment & Plan (11/10/2025 9:50 AM EST): She has been experiencing some mild diarrhea from the antibiotics due to her pneumonia. Advised to focus on probiotics and increasing fiber intake as well as staying hydrated. Unable to take Imodium due to intolerance. Acute upper respiratory infection 10/09/2025 Assessment & Plan (10/09/2025 3:43 PM EST): Patient has had 1 week of a productive cough, sore throat, and laryngitis. Afebrile, lungs clear to auscultation bilaterally, no evidence of otitis media. Flu/COVID/RSV swab obtained in the office today, negative. Advise continuing symptomatic treatment including hydration and rest. If the cost persist beyond 10/13/2025, can obtain a chest x-ray. Benzonatate (Tessalon Perles) prescribed for cough relief as needed. Class 1 obesity due to exces s [...] Plan (06/26/2025 10:10 AM EDT): Following with [facility] gynecology currently on hormone replacement therapy. Per the patient, Ernestina Howard with her c developer is trying to discontinue her hormone replacement therapy but the patient is not willing to do so. Routine general medical exam ination at [facility] 06/26/2025 Assessment & Plan (06/26/2025 10:10 [...] AM EDT): History of migraines following with [facility], well-managed on propranolol 160 mg daily [...] Encounters Date Type Department Care Team Description 11/10/2025 8:40 AM EST Office Visit [facility] [address] [place] [address] Silvana Calhoun PA-C Pneumonia of right middle lobe due to infectious organism (Primary Dx); Dry mouth and eyes; Functional diarrhea 11/03/2025 8:51 AM EST - 11/03/2025 11:59 PM EST Hospital Encounter [facility], X-Ray - [address] [place] [address] Silvana Calhoun PA-C Discharge Disposition: Home or Self Care 11/03/2025 Orders Only [facility] [address] [place] [address] Calhoun, Silvana, PA-C Pneumonia of right middle lobe due to infectious organism (Primary Dx) 10/09/2025 3:00 PM EST Office Visit [facility] [address] [place] [address] Silvana Calhoun PA-C Acute upper respiratory infection (Primary Dx) 10/09/2025 Telephone [facility] [address] [place] [address] Silvana Calhoun PA-C Cough; Laryngitis from Last 3 Months Immunizations Immunization Administration [...] Tobacco: Former Cigarettes 1983 Smokeless Tobacco: Never Tobacco Cessation:Counseling Given: [...] high school, GED, job training, learning the Salvadorean language, technical skills, or developing parenting skills)? [...] your housing situation today? I have andre pardo 06/25/2025 How many times have you move [...] Mass Index 30.89 11/10/2025 8:36 AM EST Plan of Treatment Upcoming Encounters Date Type Department Care Team (Late st Contact Info) Description 12/29/2025 8:40 AM EST Office Visit [facility] [address] [place] [address] Silvana Calhoun PA-C [address] [place] [address] [email or web address] Health Maintenance Due Date Last Done Comments COLOGUARD 2011 FIT TEST 2011 FOBT 2011 SIGMOIDOSCOPY 2011 VIRTUAL COLONOSCOPY 2011 PNEUMOCOCCAL VACCINES (50+ years) (1 of 1 - PCV) 01/29/2016 Adult Td,Tdap Booster 09/08/2024 09/08/2014 INFLUENZA VACCINE (#1) 2025 , 09/28/2022, 09/15/2020, Additional history exists COVID-19 VACCINE ( season) 2025 12/02/2021, 03/27/2021, 03/06/2021 REPEAT PHQ 11/08/2025 10/09/2025, 10/09/2025 DEPRESSION SCREENING 10/09/2026 10/09/2025, 10/09/20 SMOKING Hx and SMOKELESS TOBACCO SCREENING 11/10/2026 11/10/2025 COLONOSCOPY 01/15/2027 01/15/2017 COLORECTAL CANCER SCREENING 01/15/2027 MAMMOGRAM 06/18/2027 06/18/2025, 0 06/2023, 10/27/2022, Additional history exists SCREENING FOR DIABETES 07/14/2028 07/14/2025 PAP SMEAR 06/16/2030 06/16/2025, 0 04/2022, 08/20/2018 LIPID PANEL 07/14/2030 07/14/2025, 12/0 04/2023, 06/07/2022, Additional history exists RSV VACCINE [...] Procedure Name Priority Date/Time Associated Diagnosis Comments SS-A/SS-B ANTIBODIES Routine 11/10/2025 9:17 AM EST Dry mouth and eyes XR CHEST PA AND LATERAL 2 VIEWS Routine 11/03/2025 9:49 AM EST Subacute cough POCT SARS-COV-2, INFLUENZA A/B, RSV, PCR Routine 10/09/2025 3:03 PM EST LIPID PANEL Routine 07/14/2025 10:17 AM EDT Routine general medical examination at a [facility] facility HM MAMMOGRAPHY Routine 06/18/2025 8:56 AM EDT PAP TEST Routine 06/16/2025 8:59 AM EDT HEPATITIS C ANTIBODY, QUALITATIVE Routine 06/07/2022 9:46 AM EDT Need for hepatitis C screening test from Last 3 Months or Most Recently Relevant to Health Maintenance Results * SS-A/SS-B Antibodies (11/10/2025 9:17 AM EST) Anti-Ro Antibodies 1.8 <19.9 U 11/11/2025 3:18 PM EST [facility] Anti-La Antibody 1.2 <19.9 U 11/11/2025 3:18 PM EST [facility] SSA Negative 11/11/2025 3:18 PM EST [facility] SSB Negative 11/11/2025 3:18 PM EST [facility] Blood (Blood) Venipuncture / Unknown 11/10/2025 9:17 AM EST 11/10/2025 9:17 AM EST us Silvana Calhoun PA-C LAB BLOOD BKR ORDERABLES Fin al Result [facility] [address] [place] [address] * XR CHEST PA AND LATERAL 2 VIEWS (11/03/2025 9:49 AM EST) MGB IMG RECOMMENDATION COMMENT Right middle lobe pneumonia [facility] Anatomical Region Laterality Modality Chest Computed Radiogr aphy 11/03/2025 12:1 6 PM EST Impressions 11/03/2025 12:18 PM EST Right middle lobe pneumonia. No pleural fluid. Consider radiographic follow-up to document resolution. Follow-up recommendations were communicated and documented using a closed loop communication system. Narrative 11/03/2025 12:18 PM EST XR CHEST PA AND LATERAL 2 VIEWS Referring clinician's provided indication for this examination in Epic: Cough COMPARISON: None. FINDINGS: Devices and lines/tubes: Devices: No devices are identified. Lines/tubes: No lines/tubes are present. Heart and mediastinum: The heart size is normal. Normal caliber to the arch. Normal left-sided aortic arch. There is no acute mediastinal abnormality. Peribronchial thickening is present. Lungs: The lung volumes are normal. There is patchy consolidation identified in the distribution of the right middle lobe. There are prominent central interstitial markings identified. The left lung appears clear. Pleura: No pleural fluid or pneumothorax is identified. There is biapical scarring. Bones and soft tissues: Vertebral endplate degenerative changes are present. No focal bony lesions are present. There is no soft tissue abnormality. Procedure Note Neil Arellano MD - 11/03/2025 XR CHEST PA AND LATERAL 2 VIEWS Referring clinician's provided indication for this examination in [facility]:Cough COMPARISON: None. FINDINGS: Devices and lines/tubes: Devices: No devices are identified. Lines/tubes: No lines/tubes are present. Heart and mediastinum: The heart size is normal. Normal caliber to thearch. Normal left-sided aortic arch. There is no acute mediastinalabnormality. Peribronchial thickening is present. Lungs: The lung volumes are normal. There is patchy consolidationidentified in the distribution of the right middle lobe. There areprominent central interstitial markings identified. The left lung appearsclear. Pleura: No pleural fluid or pneumothorax is identified. There is biapicalscarring. Bones and soft tissues: Vertebral endplate degenerative changes arepresent. No focal bony lesions are present. There is no soft tissueabnormality. IMPRESSION: Right middle lobe pneumonia. No pleural fluid. Consider radiographicfollow-up to document resolution. Follow-up recommendations were communicated and documented using a closedloop communication system. Silvana Calhoun PA-C IMG XR CHEST Final Result * POCT SARS-CoV-2, Influenza A/B, RSV, PCR (10/09/2025 3:03 PM EST) SARS-Cov-2 PCR Negative Negative 10/09/2025 3:41 PM EST [facility] Influenza A Negative Negative 10/09/2025 3:41 PM EST [facility] Influenza B Negative Negative 10/09/2025 3:41 PM EST [facility] RSV PCR Negative Negative 10/09/2025 3:41 PM EST [facility] Swab (Anterior Nares) 10/09/2025 3:03 PM EST 10/09/2025 3:41 PM EST Silvana Calhoun PA-C LAB POCT DOCKED DEVICE UNSOL ICTED RESULTS Final Result [facility] [address] [place] [address], [facility] [phone] * (ABNORMAL) Lipid panel (07/14/2025 10:17 AM EDT) HDL 46 mg/dL [facility] Comment: Interpretation <40 mg/dL: Low HDL cholesterol (major risk factor for CHD) Greater than or equal to 60 mg/dL: High HDL cholesterol ( negative risk factor for CHD) HDL - cholesterol is affected by a number of factors, e.g. smoking, excerise, hormones, sex and age. CHOLESTEROL 212 0 - 240 mg/dL [facility] TRIGLYCERIDES 96 30 - 160 mg/dL [facility] LDL 147(H) 50 - 129 mg/dL [facility] Comment: LDL levels in terms of risk for coronary heart disease: <100 mg/dL: Optimal 100-129 mg/dL: Near or above optimal 130-159 mg/dL: Borderline high 160-189 mg/dL: High >190 mg/dL: Very High CARDIAC RISK RATIO 4.6(H) 3.3 - 4.4 C [facility] Blood 07/14/2025 10:1 7 AM EDT 07/14/2025 10:20 AM EDT Silvana Calhoun PA-C LAB BLOOD BKR ORDERABLES Fin al Result [facility] [address] [place] [address] * MAMMOGRAPHY FOR RESULT ENTRY ONLY (06/18/2025 8:56 AM EDT) Impressions Johana Patton CMA - 06/18/2025 8:56 AM EDT BIRADS 1 Historical Provider HEALTH MAINTENANCE Edited Result - Final * Pap Test (06/16/2025 8:59 AM EDT) Result - External See Scanned Results Impressions Johana Patton CMA - 06/16/2025 8:59 AM EDT NILM, HPV neg us Historical Provider MD CYTOLOGY ORDERABLES Edite d Result - Final * Hepatitis C antibody, qualitative (06/07/2022 9:46 AM EDT) HCV NON-REACTIV E NON-REACTI VE [facility] Blood 06/07/2022 9:46 AM EDT 06/07/2022 9:50 AM EDT us Arleth Jenkins NP LAB BLOOD BKR ORDERABLES Final Result [address] [address] from Last 3 Months or Most Recently Relevant to Health Maintenance Insurance [facility] H[facility] Care Teams Glassblower Relationship Specialty Start Date End Date Silvana Calhoun PA-C [address] [place] [id number] [email or web address] PCP - General Physician Biofuels Engineering Manager 06/26/25 Anel Guzmán NP [address] [place] [phone] Gynecology 05/12/22 Additional Source Comments The information contained in this document represents components of the legal health record. It is not the complete legal health record.[facility]
--- OUTSIDE RECORDS SUMMARY | 2025-11-13 19:46 | XMS_ITS | Encounter Summary ---
Author Organization [facility] Address [address] [place] [address] Phone Care Team Providers Care Business Assistant Name Role Phone ArielleLindaAnel Trevon TRUST ADMINISTRATOR Unavailable Silvana Calhoun PA-C Primary Care Provider Encounter Details Date Type Department Care Team (Late st Contact Info) Description 11/03/2025 Orders Only [facility] [address] [place], [place] [id number] Silvana Calhoun PA-C [address] [place] [address] [email or web address] Pneumonia of right middle lobe due to infectious organism (Primary Dx) Social History Tobacco Use Types Packs/Day Years [...] high school, GED, job training, learning the Belarusian language, technical skills, or developing parenting skills)? [...] on file documented as of this encounter Plan of Treatment Upcoming Encounters Date Type Department Care Team (Late st Contact Info) Description 12/29/2025 8:40 AM EST Office Visit [facility] [address] [place] [address] Silvana Calhoun PA-C [address] [place] [address] [email or web address] Scheduled Orders Name Type Priority Associated Diagnoses Orde r Schedule XR Chest Imaging Routine Pneumonia of right middle lobe due to infectious organism Expected: 12/03/2025, Expires: 03/21/2026 documented as of this encounter Visit Diagnoses Diagnosis Pneumonia of right middle lobe due to infectious organism- Primary documented in this encounter Additional Health Concerns Assessment Noted Time PHQ-9 Depression Total Score: 14 025 2:30 PM EST PHQ-2 Depression Total Score: 4 10/09/20 25 2:30 PM EST documented as of this encounter Care Teams Business Assistant Relationship Specialty Start Date End Date Silvana Calhoun PA-C [address] [place] [address] [email or web address] PCP - General Physician Dog Handler Or Trainer 06/26/25 Anel Guzmán NP [address] [place] [id number] Gynecology 05/12/22 documented as of this encounter Additional Source Comments The information contained in this document represents components of the legal health record. It is not the complete legal health record.[facility]
== END 2025-11-13 19:38 | disposition home or self-care (01) ==
LOC: HO.MRI 19:37
PROVIDERS: Visit Provider Registered Nurse
DX: G43.909 Migraine, unspecified, not intractable, without status migrainosus (principal); G40.909 Epilepsy, unspecified, not intractable, without status epilepticus
CPT/HCPCS: 70551

== ENCOUNTER → 2025-11-13 19:37 | Outpatient (BNV) | payer OTHER, SELFPAY | PROVIDERS: Visit Provider Radiology Diagnostic Radiology | DX: G43.909 Migraine, unspecified, not intractable, without status migrainosus (principal); J32.4 Chronic pansinusitis | CPT/HCPCS: 70551 ==